=== PATIENT | male | born 1970 | race Caucasian/White ===

== ENCOUNTER 2017-09-21 09:46 | Inpatient (IN) | payer MEDICAID ==
[2017-09-21 11:32] LABS: ADD MAN DIFF? NO
[2017-09-21] MEDS: SOD CHLORIDE 0.9% 1,000 ML IV (11:32)
[2017-09-21] MEDS: HYDROmorphONE 0.5 MG/0.5 ML SYG IV ×2 (11:32→13:35)
[2017-09-21 11:43] LABS: BASOPHILS % 0.2 % (0.0-2.0); EOSINOPHILS # 0.2 10^3/ul (0.0-0.5); EOSINOPHILS % 1.6 % (0.0-7.0); HEMATOCRIT 41.5 % (42.0-52.0); HEMOGLOBIN 14.4 g/dl (14.0-18.0); LYMPHOCYTES # 1.8 10^3/ul (0.8-2.9); LYMPHOCYTES % 13.7 % (15.0-51.0); MEAN CORPUSCULAR HEMOGLOBIN 28.7 pg (29.0-33.0); MEAN CORPUSCULAR HGB CONC 34.7 g/dl (32.0-37.0); MEAN CORPUSCULAR VOLUME 82.7 fl (82.0-101.0); MEAN PLATELET VOLUME 10.8 fl (7.4-10.4); MONOCYTE # 0.7 10^3/ul (0.3-0.9); MONOCYTES % 5.6 % (0.0-11.0); NEUTROPHIL # 10.2 10^3/ul (1.6-7.5); NEUTROPHILS % 78.4 % (39.0-77.0); PLATELET COUNT 264 10^3/UL (140-415); RED BLOOD COUNT 5.02 10^6/ul (4.70-6.10); RED CELL DISTRIBUTION WIDTH 12.9 % (11.5-14.5)
[2017-09-21 11:58] LABS: ALANINE AMINOTRANSFERASE 31 IU/L (13-69); ALBUMIN/GLOBULIN RATIO 0.97; ALKALINE PHOSPHATASE 80 IU/L (42-121); ANION GAP 22 (8-16); ASPARTATE AMINO TRANSFERASE 25 IU/L (15-46); BILIRUBIN,INDIRECT 0.4 mg/dl (0-1.1); BILIRUBIN,TOTAL 0.4 mg/dl (0.2-1.3); BLOOD UREA NITROGEN 15 mg/dl (7-20); CALCIUM 8.8 mg/dl (8.4-10.2); CARBON DIOXIDE 22 mmol/L (21-31); CHLORIDE 96 mmol/L (97-110); CREATININE 0.71 mg/dl (0.61-1.24); GLUCOSE 335 mg/dl (70-220); LIPASE 662 U/L (23-300); POTASSIUM 4.4 mmol/L (3.5-5.1); SODIUM 136 mmol/L (135-144); TOTAL PROTEIN 8.1 g/dl (6.1-8.1)
[2017-09-21 12:58] LABS: ADD UMIC YES; UR ASCORBIC ACID NEGATIVE (NEGATIVE); UR BACTERIA FEW /HPF (NONE SEEN); UR BILIRUBIN (Dip) NEGATIVE (NEGATIVE); UR BLOOD (Dip) NEGATIVE (NEGATIVE); UR CLARITY CLEAR (CLEAR); UR COLOR YELLOW (YELLOW); UR GLUCOSE (Dip) 3+ mg/dL (NEGATIVE); UR KETONES (Dip) 2+ mg/dL (NEGATIVE); UR LEUKOCYTE ESTERASE (Dip) NEGATIVE Leu/ul (NEGATIVE); UR NITRITE (Dip) NEGATIVE (NEGATIVE); UR RBC 1 /HPF (0-5); UR SPECIFIC GRAVITY (Dip) 1.035 (1.003-1.030); UR TOTAL PROTEIN (Dip) 2+ mg/dl (NEGATIVE); UR UROBILINOGEN (Dip) NEGATIVE (NEGATIVE); UR WBC 0 /HPF (0-5)
[2017-09-21] MEDS: ONDANSETRON 4 MG INJ IV ×2 (16:17→19:35)
[2017-09-21] MEDS: HYDROmorphONE 1 MG/ML SYG IV (16:17)
[2017-09-21] MEDS ORDERED: NACL 0.9% 3 ML SYG IV (19:00)
[2017-09-21] MEDS ORDERED: GLUCAGON 1 MG INJ IM (19:00)
[2017-09-21] MEDS ORDERED: GLUCOSE GEL 15 GRAM TUBE BUCCAL (19:00)
[2017-09-21] MEDS ORDERED: DEXTROSE 50% 50 ML SYRINGE IV ×2 (19:00)
[2017-09-21] MEDS ORDERED: GLUCOSE GEL 15 GRAM TUBE PO ×2 (19:00)
[2017-09-21] MEDS: morphine 2 MG INJ IV ×2 (19:35→21:56)
[2017-09-21] MEDS: DEXTROSE 5%-0.9% NACL 1,000 ML IV (19:36)
[2017-09-21] MEDS: INSULIN ASPART [NOVOLOG] 3 ML PEN SC (21:40)
[2017-09-22] MEDS: INSULIN ASPART [NOVOLOG] 3 ML PEN SC ×6 (00:55→20:31)
[2017-09-22] MEDS ORDERED: ACCU-CHEK XX (02:00)
[2017-09-22] MEDS: KETOROLAC 30 MG INJ IV (03:06)
[2017-09-22] MEDS: DEXTROSE 5%-0.9% NACL 1,000 ML IV (03:07)
[2017-09-22] MEDS: morphine 2 MG INJ IV ×2 (04:59→08:52)
[2017-09-22 05:08] LABS: ADD MAN DIFF? NO
[2017-09-22 05:12] LABS: BASOPHILS % 0.2 % (0.0-2.0); EOSINOPHILS # 0.2 10^3/ul (0.0-0.5); HEMATOCRIT 35.9 % (42.0-52.0); HEMOGLOBIN 12.3 g/dl (14.0-18.0); LYMPHOCYTES # 1.1 10^3/ul (0.8-2.9); LYMPHOCYTES % 9.7 % (15.0-51.0); MEAN CORPUSCULAR HEMOGLOBIN 28.3 pg (29.0-33.0); MEAN CORPUSCULAR HGB CONC 34.3 g/dl (32.0-37.0); MEAN CORPUSCULAR VOLUME 82.5 fl (82.0-101.0); MEAN PLATELET VOLUME 10.7 fl (7.4-10.4); MONOCYTE # 0.7 10^3/ul (0.3-0.9); MONOCYTES % 6.2 % (0.0-11.0); NEUTROPHIL # 9.6 10^3/ul (1.6-7.5); NEUTROPHILS % 81.6 % (39.0-77.0); PLATELET COUNT 222 10^3/UL (140-415); RED BLOOD COUNT 4.35 10^6/ul (4.70-6.10); RED CELL DISTRIBUTION WIDTH 12.8 % (11.5-14.5)
[2017-09-22 05:12] LABS: WHITE BLOOD COUNT 11.8 10^3/ul (4.8-10.8)
[2017-09-22 05:32] LABS: HEMOGLOBIN A1C 12.5 % (0-5.9)
[2017-09-22 06:15] LABS: ALANINE AMINOTRANSFERASE 31 IU/L (13-69); ALBUMIN 3.5 g/dl (3.3-4.9); ALKALINE PHOSPHATASE 67 IU/L (42-121); ANION GAP 17 (8-16); ASPARTATE AMINO TRANSFERASE 13 IU/L (15-46); BILIRUBIN,INDIRECT 0.2 mg/dl (0-1.1); BILIRUBIN,TOTAL 0.2 mg/dl (0.2-1.3); BLOOD UREA NITROGEN 9 mg/dl (7-20); CALCIUM 8.2 mg/dl (8.4-10.2); CARBON DIOXIDE 23 mmol/L (21-31); CHLORIDE 101 mmol/L (97-110); CHOL/HDL RATIO 8.7 RATIO; CHOLESTEROL 271 mg/dl (100-200); CREATININE 0.57 mg/dl (0.61-1.24); GLUCOSE 261 mg/dl (70-220); HDL CHOLESTEROL 31 mg/dl (27-67); LIPASE 185 U/L (23-300); MAGNESIUM 1.7 mg/dl (1.7-2.5); PHOSPHORUS 3.5 mg/dl (2.5-4.9); SODIUM 137 mmol/L (135-144)
[2017-09-22 06:31] LABS: TRIGLYCERIDES > 1575 mg/dl (0-149)
[2017-09-22] MEDS: SOD CHLORIDE 0.9% 1,000 ML IV (11:42)
[2017-09-22] MEDS: HYDROmorphONE 0.5 MG/0.5 ML SYG IV ×4 (11:43→22:01)
[2017-09-22] MEDS ORDERED: hydrALAzine 20 MG INJ IV (12:30)
[2017-09-22] MEDS: INSULIN GLARGINE [LANtus] 3 ML PEN SC (13:00)
[2017-09-22] MEDS: D5W-0.45 NACL + KCL 20 MEQ 1,000 ML IV ×3 (15:16→23:30)
[2017-09-22] MEDS: INSULIN DETEMIR [LEVEMIR] 3ML CART SC (20:31)
[2017-09-23] MEDS: HYDROmorphONE 0.5 MG/0.5 ML SYG IV ×4 (01:28→20:34)
[2017-09-23] MEDS: INSULIN ASPART [NOVOLOG] 3 ML PEN SC ×8 (01:33→20:31)
[2017-09-23] MEDS: D5W-0.45 NACL + KCL 20 MEQ 1,000 ML IV ×3 (05:30→17:35)
[2017-09-23 06:03] LABS: ADD MAN DIFF? NO
[2017-09-23 06:06] LABS: HEMATOCRIT 35.7 % (42.0-52.0)
[2017-09-23 06:12] LABS: BASOPHILS % 0.3 % (0.0-2.0); EOSINOPHILS # 0.2 10^3/ul (0.0-0.5); EOSINOPHILS % 3.1 % (0.0-7.0); HEMOGLOBIN 12.1 g/dl (14.0-18.0); LYMPHOCYTES # 1.3 10^3/ul (0.8-2.9); LYMPHOCYTES % 16.1 % (15.0-51.0); MEAN CORPUSCULAR HEMOGLOBIN 28.5 pg (29.0-33.0); MEAN CORPUSCULAR HGB CONC 33.9 g/dl (32.0-37.0); MEAN PLATELET VOLUME 10.4 fl (7.4-10.4); MONOCYTE # 0.6 10^3/ul (0.3-0.9); MONOCYTES % 8.1 % (0.0-11.0); NEUTROPHIL # 5.6 10^3/ul (1.6-7.5); NEUTROPHILS % 71.9 % (39.0-77.0); PLATELET COUNT 233 10^3/UL (140-415); RED BLOOD COUNT 4.25 10^6/ul (4.70-6.10); RED CELL DISTRIBUTION WIDTH 12.8 % (11.5-14.5)
[2017-09-23 06:12] LABS: WHITE BLOOD COUNT 7.8 10^3/ul (4.8-10.8)
[2017-09-23 06:34] LABS: ANION GAP 12 (8-16); BLOOD UREA NITROGEN 6 mg/dl (7-20); CALCIUM 8.3 mg/dl (8.4-10.2); CARBON DIOXIDE 27 mmol/L (21-31); CHLORIDE 102 mmol/L (97-110); CREATININE 0.59 mg/dl (0.61-1.24); GLUCOSE 196 mg/dl (70-220); LIPASE 82 U/L (23-300); POTASSIUM 3.5 mmol/L (3.5-5.1); SODIUM 137 mmol/L (135-144)
[2017-09-23 07:47] LABS: MAGNESIUM 1.8 mg/dl (1.7-2.5)
[2017-09-23] MEDS: INSULIN DETEMIR [LEVEMIR] 3ML CART SC (08:14)
[2017-09-23] MEDS: FENOFIBRATE 145 MG TAB PO (11:19)
[2017-09-23 18:23] LABS: TROPONIN-I < 0.012 ng/ml (0.00-0.12)
[2017-09-23] MEDS: metFORMIN 500 MG TAB PO (18:40)
[2017-09-23] MEDS: FISH OIL 1,000 MG CAP PO (20:26)
[2017-09-23] MEDS: INSULIN GLARGINE [LANtus] 3 ML PEN SC (20:30)
[2017-09-24] MEDS: HYDROmorphONE 0.5 MG/0.5 ML SYG IV ×2 (00:47→12:21)
[2017-09-24] MEDS: ACCU-CHEK XX (01:33)
[2017-09-24 06:09] LABS: ADD MAN DIFF? NO
[2017-09-24 06:18] LABS: BASOPHILS % 0.4 % (0.0-2.0); EOSINOPHILS # 0.3 10^3/ul (0.0-0.5); EOSINOPHILS % 4.6 % (0.0-7.0); HEMATOCRIT 37.6 % (42.0-52.0); HEMOGLOBIN 12.5 g/dl (14.0-18.0); LYMPHOCYTES # 1.8 10^3/ul (0.8-2.9); LYMPHOCYTES % 26.9 % (15.0-51.0); MEAN CORPUSCULAR HEMOGLOBIN 27.8 pg (29.0-33.0); MEAN CORPUSCULAR HGB CONC 33.2 g/dl (32.0-37.0); MEAN CORPUSCULAR VOLUME 83.7 fl (82.0-101.0); MEAN PLATELET VOLUME 10.3 fl (7.4-10.4); MONOCYTE # 0.6 10^3/ul (0.3-0.9); MONOCYTES % 8.4 % (0.0-11.0); NEUTROPHILS % 59.1 % (39.0-77.0); PLATELET COUNT 278 10^3/UL (140-415); RED BLOOD COUNT 4.49 10^6/ul (4.70-6.10); RED CELL DISTRIBUTION WIDTH 12.6 % (11.5-14.5)
[2017-09-24 06:18] LABS: WHITE BLOOD COUNT 6.7 10^3/ul (4.8-10.8)
[2017-09-24 06:30] LABS: PHOSPHORUS 4.5 mg/dl (2.5-4.9)
[2017-09-24 06:30] LABS: MAGNESIUM 1.6 mg/dl (1.7-2.5)
[2017-09-24 06:32] LABS: ANION GAP 16 (8-16); BLOOD UREA NITROGEN 10 mg/dl (7-20); CALCIUM 9.2 mg/dl (8.4-10.2); CARBON DIOXIDE 27 mmol/L (21-31); CHLORIDE 101 mmol/L (97-110); GLUCOSE 249 mg/dl (70-220); LIPASE 59 U/L (23-300); POTASSIUM 3.6 mmol/L (3.5-5.1); SODIUM 140 mmol/L (135-144)
[2017-09-24] MEDS: KETOROLAC 30 MG INJ IV ×2 (08:01→16:48)
[2017-09-24] MEDS: FISH OIL 1,000 MG CAP PO ×2 (08:01→20:50)
[2017-09-24] MEDS: metFORMIN 500 MG TAB PO ×2 (08:01→17:22)
[2017-09-24] MEDS: INSULIN ASPART [NOVOLOG] 3 ML PEN SC ×7 (08:11→20:50)
[2017-09-24] MEDS: FENOFIBRATE 145 MG TAB PO (08:21)
[2017-09-24] MEDS: MAGNESIUM OXIDE 400 MG TAB PO (12:43)
[2017-09-24] MEDS: INSULIN GLARGINE [LANtus] 3 ML PEN SC (20:49)
== END 2017-09-24 21:55 | disposition home or self-care (01) | DRG 439 ==
LOC: MS2 09-22 08:15 → FTE 09:46 → MS3 17:10
DX: K85.80 Other acute pancreatitis without necrosis or infection (principal); R65.10 Systemic inflammatory response syndrome (SIRS) of non-infectious origin without acute organ dysfunction; E11.65 Type 2 diabetes mellitus with hyperglycemia; E78.2 Mixed hyperlipidemia; I10 Essential (primary) hypertension; Z87.891 Personal history of nicotine dependence
CPT/HCPCS: 36415; 74176; 76705; 80048; 80053; 80061; 81001; 82962; 83036; 83690; 83735; 84100; 84484; 85025; 93005; 96374; 96375; 96376; 99285-25

== ENCOUNTER 2019-03-24 15:13 | Emergency (ER) | payer OTHER, MEDICAID ==
[2019-03-24] MEDS: SOD CHLORIDE 0.9% 810 ML IV (15:47)
[2019-03-24 15:49] LABS: ADD MAN DIFF? NO
[2019-03-24 15:52] LABS: BASOPHILS % 0.2 % (0.0-2.0); EOSINOPHILS # 0.1 10^3/ul (0.0-0.5); EOSINOPHILS % 0.9 % (0.0-7.0); HEMATOCRIT 40.5 % (42.0-52.0); HEMOGLOBIN 13.3 g/dl (14.0-18.0); LYMPHOCYTES # 1.3 10^3/ul (0.8-2.9); LYMPHOCYTES % 22.7 % (15.0-51.0); MEAN CORPUSCULAR HEMOGLOBIN 27.1 pg (29.0-33.0); MEAN CORPUSCULAR HGB CONC 32.8 g/dl (32.0-37.0); MEAN CORPUSCULAR VOLUME 82.5 fl (82.0-101.0); MEAN PLATELET VOLUME 10.8 fl (7.4-10.4); MONOCYTE # 0.7 10^3/ul (0.3-0.9); MONOCYTES % 12.2 % (0.0-11.0); NEUTROPHIL # 3.6 10^3/ul (1.6-7.5); NEUTROPHILS % 63.5 % (39.0-77.0); PLATELET COUNT 314 10^3/UL (140-415); RED BLOOD COUNT 4.91 10^6/ul (4.70-6.10); RED CELL DISTRIBUTION WIDTH 12.4 % (11.5-14.5)
[2019-03-24 15:52] LABS: WHITE BLOOD COUNT 5.6 10^3/ul (4.8-10.8)
[2019-03-24 16:15] LABS: ANION GAP 11 (5-13); BLOOD UREA NITROGEN 11 mg/dl (7-20); CALCIUM 9.2 mg/dl (8.4-10.2); CARBON DIOXIDE 24 mmol/L (21-31); CHLORIDE 98 mmol/L (97-110); CREATININE 0.99 mg/dl (0.61-1.24); Estimated GFR > 60 mL/min (>60); MAGNESIUM 1.9 mg/dl (1.7-2.5); POTASSIUM 3.9 mmol/L (3.5-5.1); SODIUM 133 mmol/L (135-144)
[2019-03-24 16:25] LABS: GLUCOSE 432 mg/dl (70-220)
[2019-03-24 16:28] LABS: ALANINE AMINOTRANSFERASE 37 IU/L (13-69); ALBUMIN 3.4 g/dl (3.3-4.9); ALKALINE PHOSPHATASE 58 IU/L (42-121); ASPARTATE AMINO TRANSFERASE 30 IU/L (15-46); BILIRUBIN,INDIRECT 0.3 mg/dl (0-1.1); BILIRUBIN,TOTAL 0.3 mg/dl (0.2-1.3); LIPASE 99 U/L (23-300); TOTAL PROTEIN 6.4 g/dl (6.1-8.1)
[2019-03-24 16:30] LABS: ADD UMIC YES; UR ASCORBIC ACID NEGATIVE (NEGATIVE); UR BILIRUBIN (Dip) NEGATIVE (NEGATIVE); UR BLOOD (Dip) 1+ mg/dL (NEGATIVE); UR CLARITY CLEAR (CLEAR); UR COLOR YELLOW (YELLOW); UR GLUCOSE (Dip) 3+ mg/dL (NEGATIVE); UR KETONES (Dip) TRACE mg/dL (NEGATIVE); UR LEUKOCYTE ESTERASE (Dip) NEGATIVE Leu/ul (NEGATIVE); UR NITRITE (Dip) NEGATIVE (NEGATIVE); UR RBC 2 /HPF (0-5); UR SPECIFIC GRAVITY (Dip) 1.032 (1.003-1.030); UR TOTAL PROTEIN (Dip) NEGATIVE (NEGATIVE); UR UROBILINOGEN (Dip) NEGATIVE (NEGATIVE); UR WBC 3 /HPF (0-5)
[2019-03-24] MEDS: ONDANSETRON 4 MG INJ IV (16:35)
[2019-03-24] MEDS: LOPERAMIDE 2 MG CAP PO (16:35)
[2019-03-24] MEDS: LACTATED RINGER'S 1,000 ML IV (16:39)
[2019-03-24] MEDS: KETOROLAC 15 MG INJ IV (17:41)
[2019-03-24] MEDS: INSULIN ASPART [NOVOLOG] 3 ML PEN SC (17:55)
[2019-03-24] MEDS ORDERED: ACCU-CHEK XX (18:00)
[2019-03-24] MEDS: INSULIN ASP PROT/ASPART (70/30) PEN SC (19:43)
== END 2019-03-24 19:50 | disposition home or self-care (01) ==
LOC: E/R 15:13
DX: E11.65 Type 2 diabetes mellitus with hyperglycemia (principal); R19.7 Diarrhea, unspecified; R11.10 Vomiting, unspecified; Z79.4 Long term (current) use of insulin; Z87.891 Personal history of nicotine dependence
CPT/HCPCS: 36415; 80048; 80076; 81001; 82962; 83690; 83735; 84100; 85025; 96361; 96372; 96374; 96375; 99284-25